=== PATIENT | female | born 1950 | race Asian ===

== ENCOUNTER → 2016-05-23 | Outpatient (CLI) | payer OTHER ==
[2016-05-23 10:29] LABS: MEAN CORPUSCULAR HGB CONC 33.2 g/dl (32.0-36.5); MEAN CORPUSCULAR VOLUME 96.4 fl (80.0-96.0); RED CELL DISTRIBUTION WIDTH 13.5 % (11.5-14.5); WHITE BLOOD COUNT 4.7 K/mm3 (4.0-10.0)
[2016-05-23 10:59] LABS: ALBUMIN 3.9 GM/DL (3.2-5.2); ALBUMIN/GLOBULIN RATIO 1.05 (1.00-1.93); ALKALINE PHOSPHATASE 57 U/L (45-117); ALT/SGPT 19 U/L (12-78); ANION GAP 9 MEQ/L (8-16); AST/SGOT 11 U/L (15-37); BILIRUBIN,TOTAL 0.3 MG/DL (0.2-1.0); BLOOD UREA NITROGEN 28 MG/DL (7-18); CARBON DIOXIDE LEVEL 24 MEQ/L (21-32); CHLORIDE LEVEL 108 MEQ/L (98-107); CREATININE FOR GFR 0.69 MG/DL (0.55-1.02); GLOMERULAR FILTRATION RATE > 60.0 (>45); GLUCOSE, FASTING 103 MG/DL (80-110); POTASSIUM SERUM 4.4 MEQ/L (3.5-5.1); SODIUM LEVEL 141 MEQ/L (136-145); TOTAL PROTEIN 7.6 GM/DL (6.4-8.2)
== END ==
LOC: M LAB 09:58
PROVIDERS: ATTEND Nurse Practitioner Family
DX: Z13.228 Encounter for screening for other metabolic disorders (principal); Z13.0 Encounter for screening for diseases of the blood and blood-forming organs and certain disorders involving the immune mechanism; R68.89 Other general symptoms and signs

== ENCOUNTER → 2016-08-15 | Outpatient (CLI) | payer OTHER ==
--- NOTE | 2016-08-15 12:32 | REPMRS ---
Patient History The patient states she has not had a clinical breast exam in over a year. Patient is postmenopausal and is nulliparous. No known family history of cancer. Digital Mammo Screening Bilat: August 15, 2016 - Exam #: [id number] Bilateral CC and MLO view(s) were taken. Technologist: Cheryl Paul, Technologist FINDINGS: There are scattered fibroglandular densities. There has been no change in the appearance of the mammogram from the prior studies. There is a mild amount of residual fibroglandular tissue which is fairly symmetric. There is no interval development of dominant mass, architectural distortion, or clustered microcalcification suggestive of malignancy. ASSESSMENT: BI-RADS/ACR category 1 mammogram. Negative. Recommendation Routine screening mammogram in 1 year (for women over age 40). This mammogram was interpreted with the aid of an FDA-approved computer-aided dectection system. Electronically Signed By: Jonas Jenkins MD 08/15/16 [id number]
== END ==
LOC: M RAD 11:37
PROVIDERS: ATTEND Nurse Practitioner Family
DX: Z12.31 Encounter for screening mammogram for malignant neoplasm of breast (principal)

== ENCOUNTER → 2016-08-29 | Outpatient (CLI) | payer OTHER ==
--- NOTE | 2016-08-30 08:50 | DEXA ---
AP SPINE L1 - L4 0.983 -1.7 -0.2 LT FEMUR TOTAL 0.970 -0.3 0.8 RT FEMUR TOTAL 0.989 -0.2 1.0 TOTAL BODY TOTAL OTHER DUAL FEMUR FRAX* ASSESSMENT Risk factors: History of fracture (adult). 10 year probability of fracture Major osteoporotic fracture 13.9 % Hip fracture 1.2 % COMMENTS: There is low bone density of the spine and hips. FOLLOW-UP: Recommendation for the next bone density exam: 2 years. YESSY
== END ==
LOC: M WHC 08:43
PROVIDERS: ATTEND Nurse Practitioner Family
DX: Z78.0 Asymptomatic menopausal state (principal); M84.80 Other disorders of continuity of bone, unspecified site

== ENCOUNTER → 2016-12-18 | Outpatient (REF) | payer OTHER ==
[2016-12-18 20:04] LABS: ANION GAP 10 MEQ/L (8-16); BLOOD UREA NITROGEN 14 MG/DL (7-18); CALCIUM LEVEL 8.6 MG/DL (8.8-10.2); CARBON DIOXIDE LEVEL 26 MEQ/L (21-32); CHLORIDE LEVEL 105 MEQ/L (98-107); CREATININE FOR GFR 0.66 MG/DL (0.55-1.02); GLOMERULAR FILTRATION RATE > 60.0 (>45); GLUCOSE, FASTING 92 MG/DL (80-110); POTASSIUM SERUM 3.8 MEQ/L (3.5-5.1); SODIUM LEVEL 141 MEQ/L (136-145)
== END ==
LOC: M LAB REF 18:03
PROVIDERS: ATTEND Nurse Practitioner Family
DX: M85.819 Other specified disorders of bone density and structure, unspecified shoulder (principal)

== ENCOUNTER → 2017-10-15 | Outpatient (REF) | payer MEDICARE ==
[2017-10-15 13:41] LABS: ALBUMIN 3.8 GM/DL (3.2-5.2); ALBUMIN/GLOBULIN RATIO 0.93 (1.00-1.93); ALKALINE PHOSPHATASE 65 U/L (45-117); ALT/SGPT 22 U/L (12-78); ANION GAP 6 MEQ/L (8-16); AST/SGOT 14 U/L (7-37); BILIRUBIN,TOTAL 0.4 MG/DL (0.2-1.0); BLOOD UREA NITROGEN 13 MG/DL (7-18); CALCIUM LEVEL 8.9 MG/DL (8.8-10.2); CARBON DIOXIDE LEVEL 30 MEQ/L (21-32); CHLORIDE LEVEL 104 MEQ/L (98-107); CHOLESTEROL LEVEL 276 MG/DL (<200); CHOLESTEROL RISK RATIO 4.758 (<5); CREATININE FOR GFR 0.63 MG/DL (0.55-1.30); GLOMERULAR FILTRATION RATE > 60.0 (>45); GLUCOSE, FASTING 82 MG/DL (70-100); HDL CHOLESTEROL 58 MG/DL (>40); LDL CHOLESTEROL 198.4 MG/DL (<100); NON-HDL-C 218 MG/DL; POTASSIUM SERUM 4.3 MEQ/L (3.5-5.1); SODIUM LEVEL 140 MEQ/L (136-145); TOTAL PROTEIN 7.9 GM/DL (6.4-8.2); TRIGLYCERIDES LEVEL 98 MG/DL (<150)
[2017-10-15 14:32] LABS: ESTIMATED AVERAGE GLUCOSE 126 MG/DL (60-110)
== END ==
LOC: M SFHCPLAZ 09:21
DX: Z13.1 Encounter for screening for diabetes mellitus (principal); Z13.220 Encounter for screening for lipoid disorders
CPT/HCPCS: 80053

== ENCOUNTER → 2018-10-07 | Outpatient (REF) | payer MEDICARE ==
[2018-10-07 11:27] LABS: HEMOGLOBIN A1c 6.1 %
[2018-10-07 11:32] LABS: CHOLESTEROL RISK RATIO 4.693 (<5)
== END ==
LOC: M SFHCPLAZ 08:52
PROVIDERS: ATTEND Family Medicine
DX: R73.03 Prediabetes (principal); E78.00 Pure hypercholesterolemia, unspecified

== ENCOUNTER → 2018-12-24 | Outpatient (REF) | payer MEDICARE | LOC: M LAB REF 12:38 | PROVIDERS: ATTEND Nurse Practitioner Family | DX: R19.7 Diarrhea, unspecified (principal) ==

== ENCOUNTER → 2018-12-25 | Outpatient (CLI) | payer MEDICARE ==
[2018-12-25 13:30] LABS: BASO % 0.6 % (0.0-1.0); EOS # 0.1 10^3/uL (0.0-0.50); EOS % 1.4 % (0.0-3.0); HEMATOCRIT 39.9 % (36.0-47.0); HEMOGLOBIN 13.3 g/dl (12.0-15.5); LYMPH # 2.2 10^3/uL (1.5-4.5); LYMPH % 33.7 % (24.0-44.0); MEAN CORPUSCULAR HEMOGLOBIN 32.5 pg (27.0-33.0); MEAN CORPUSCULAR HGB CONC 33.3 g/dl (32.0-36.5); MEAN CORPUSCULAR VOLUME 97.6 fl (80.0-96.0); MONO # 0.3 10^3/uL (0.0-0.8); MONO % 4.8 % (0.0-5.0); NEUTROPHILS # 3.9 10^3/uL (1.8-7.7); NEUTROPHILS % 59.2 % (36.0-66.0); PLATELET COUNT, AUTOMATED 358 10^3/uL (150-450); RED BLOOD COUNT 4.09 10^6/uL (4.00-5.40); WHITE BLOOD COUNT 6.6 10^3/uL (4.0-10.0)
[2018-12-25 13:32] LABS: ALBUMIN 4.1 GM/DL (3.2-5.2); ALT/SGPT 22 U/L (12-78); BILIRUBIN,TOTAL 0.3 MG/DL (0.2-1.0); BLOOD UREA NITROGEN 12 MG/DL (7-18); CALCIUM LEVEL 9.6 MG/DL (8.8-10.2); CARBON DIOXIDE LEVEL 27 MEQ/L (21-32); CHLORIDE LEVEL 106 MEQ/L (98-107); CREATININE FOR GFR 0.72 MG/DL (0.55-1.30); GLOMERULAR FILTRATION RATE > 60.0 (>45); GLUCOSE, FASTING 102 MG/DL (70-100); LIPASE 99 U/L (73-393); POTASSIUM SERUM 4.7 MEQ/L (3.5-5.1); SODIUM LEVEL 138 MEQ/L (136-145); TOTAL PROTEIN 8.4 GM/DL (6.4-8.2)
== END ==
LOC: M WUC 08:27
PROVIDERS: ATTEND Physician Assistant
DX: R19.7 Diarrhea, unspecified (principal)

== ENCOUNTER → 2019-01-27 | Outpatient (REF) | payer MEDICARE, OTHER | LOC: M SFHCPLAZ 12:37 | PROVIDERS: ATTEND Obstetrics & Gynecology | DX: Z01.419 Encounter for gynecological examination (general) (routine) without abnormal findings (principal); N95.8 Other specified menopausal and perimenopausal disorders ==

== ENCOUNTER → 2019-02-10 | Outpatient (CLI) | payer MEDICARE, OTHER ==
--- NOTE | 2019-02-10 15:07 | REPMRS ---
Patient History The patient states she has not had a clinical breast exam in over a year. Patient is postmenopausal and is nulliparous. Family history of colorectal cancer at age 69 in mother. No Hormone Replacement Therapy 3D TOMOSYNTHESIS WAS PERFORMED. [facility] lifetime risk for breast cancer is 6.9%. Digital Woman Screen Mammo: February 10, 2019 - Exam #: [id number] Bilateral CC and MLO view(s) were taken. Technologist: Rachelle Drummond, Technologist Prior study comparison: August 15, 2016, bilateral digital mammo screening bilat, performed at [facility]. FINDINGS: The breast tissue is heterogeneously dense. This may lower the sensitivity of mammography. There has been no change in the appearance of the mammogram from the prior studies. There is a moderate amount of residual fibroglandular tissue which is fairly symmetric. There is no interval development of dominant mass, areas of architectural distortion, or clustered microcalcification typical of malignancy. Assessment: BI-RADS/ACR category 1 mammogram. Negative Mammogram. Recommendation Routine screening mammogram in 1 year (for women over age 40). This mammogram was interpreted with the aid of an FDA-approved computer-aided dectection system. Electronically Signed By: Jonas Jenkins MD 02/10/19 0657
--- NOTE | 2019-02-13 09:34 | DEXA ---
AP SPINE L1 - L4 1.034 -1.3 0.3 LT FEMUR TOTAL 0.973 -0.3 1.0 LT NECK 0.874 -1.2 0.4 RT FEMUR TOTAL 0.980 -0.2 1.1 RT NECK 0.864 -1.3 0.3 TOTAL BODY TOTAL OTHER COMMENTS: There is low bone density of the spine and hips. The density of the spine has increased 5.2% since 08/29/2016. The density of the left hip has increased 0.3% since 08/29/2016. The density of the right hip has decreased 0.9% since 08/29/2016. The increased density of the spine does represent a significant change. The increased density of the left hip does not represent a significant change. The decreased density of the right hip does not represent a significant change. FOLLOW-UP: Recommendation for the next bone density exam: 2 years. YESSY
== END ==
LOC: M WHC 13:17
PROVIDERS: ATTEND Student in an Organized Health Care Education/Training Program
DX: Z12.31 Encounter for screening mammogram for malignant neoplasm of breast (principal); Z12.39 Encounter for other screening for malignant neoplasm of breast; Z13.820 Encounter for screening for osteoporosis; M81.0 Age-related osteoporosis without current pathological fracture

== ENCOUNTER 2019-03-17 08:57 | Day surgery (SDC) | payer MEDICARE, OTHER ==
[~2019-03-17] VITALS: Ht 154.9 cm; Wt 65.8 kg
[2019-03-17] MEDS ORDERED: NS 1,000 ML IV ONE (10:00)
[2019-03-17] MEDS ORDERED: PROPOFOL 200 MG/20 ML VIAL As Ordered ONE (10:02)
[2019-03-17] MEDS ORDERED: LIDOCAINE 2% INJ 100 MG/5 ML SDV (FOR ANES.) As Ordered ONE (10:02)
--- NOTE | 2019-03-17 10:34 | ROOR ---
Patient Name: Mikel Monson Procedure Date: 03/17/2019 9:38 AM Date of : 1950 Age: 68 Room: [facility] Gender: Female Note Status: Finalized Procedure: Upper GI endoscopy Indications: Heartburn, Suspected gastro-esophageal reflux disease Providers: Shane Angeles MD Referring MD: Fahad Gordon Do Requesting Provider: Medicines: Monitored Anesthesia Care Complications: No immediate complications. Procedure: Pre-Anesthesia Assessment: - Prior to the procedure, a History and Physical was performed, and patient medications and allergies were reviewed. The patient is competent. The risks and benefits of the procedure and the sedation options and risks were discussed with the patient. All questions were answered and informed consent was obtained. Patient identification and proposed procedure were verified by the physician, the nurse and the anesthesiologist in the procedure room. Mental Status Examination: alert and oriented. Airway Examination: normal oropharyngeal airway and neck mobility. Respiratory Examination: clear to auscultation. CV Examination: normal. Prophylactic Antibiotics: The patient does not require prophylactic antibiotics. Prior Anticoagulants: The patient has taken no previous anticoagulant or antiplatelet agents. ASA Grade Assessment: II - A patient with mild systemic disease. After reviewing the risks and benefits, the patient was deemed in satisfactory condition to undergo the procedure. The anesthesia plan was to use monitored anesthesia care (MAC). Immediately prior to administration of medications, the patient was re-assessed for adequacy to receive sedatives. The heart rate, respiratory rate, oxygen saturations, blood pressure, adequacy of pulmonary ventilation, and response to care were monitored throughout the procedure. The physical status of the patient was re-assessed after the procedure. The Endoscope was introduced through the mouth, and advanced to the second part of duodenum. The upper GI endoscopy was accomplished without difficulty. The patient tolerated the procedure well. Findings: The Z-line was irregular and was found 35 cm from the incisors. The examined esophagus was normal. Scattered mild inflammation characterized by erythema and granularity was found in the gastric antrum. Biopsies were taken with a cold forceps for Helicobacter pylori testing. Verification of patient identification for the specimen was done by the physician and nurse using the patient's name, date and medical record number. Estimated blood loss was minimal. The duodenal bulb and second portion of the duodenum were normal. Impression: - Z-line irregular, 35 cm from the incisors. - Normal esophagus. - Gastritis. Biopsied. - Normal duodenal bulb and second portion of the duodenum. Recommendation: - Patient has a contact number available for emergencies. The signs and symptoms of potential delayed complications were discussed with the patient. Return to normal activities tomorrow. Written discharge instructions were provided to the patient. - High fiber diet. - Follow an antireflux regimen. - Await pathology results. - Telephone GI clinic for pathology results in 2 weeks. - Return to primary care physician. Shane Angeles MD Shane Angeles MD 03/17/2019 10:34:02 AM Electronically signed by Shane Angeles MD Number of Addenda: 0 Note Initiated On: 03/17/2019 9:38 AM Estimated Blood Loss: Estimated blood loss was minimal.
--- NOTE | 2019-03-17 10:39 | ROOR ---
Patient Name: Mikel Monson Procedure Date: 03/17/2019 9:39 AM Date of : 1950 Age: 68 Room: [facility] Gender: Female Note Status: Finalized Procedure: Colonoscopy Indications: Screening for colorectal malignant neoplasm Providers: Shane Angeles MD Referring MD: Fahad Gordon Do Requesting Provider: Medicines: Monitored Anesthesia Care Complications: No immediate complications. Procedure: Pre-Anesthesia Assessment: - Prior to the procedure, a History and Physical was performed, and patient medications and allergies were reviewed. The patient is competent. The risks and benefits of the procedure and the sedation options and risks were discussed with the patient. All questions were answered and informed consent was obtained. Patient identification and proposed procedure were verified by the physician, the nurse and the anesthesiologist in the procedure room. Mental Status Examination: alert and oriented. Airway Examination: normal oropharyngeal airway and neck mobility. Respiratory Examination: clear to auscultation. CV Examination: normal. Prophylactic Antibiotics: The patient does not require prophylactic antibiotics. Prior Anticoagulants: The patient has taken no previous anticoagulant or antiplatelet agents. ASA Grade Assessment: II - A patient with mild systemic disease. After reviewing the risks and benefits, the patient was deemed in satisfactory condition to undergo the procedure. The anesthesia plan was to use monitored anesthesia care (MAC). Immediately prior to administration of medications, the patient was re-assessed for adequacy to receive sedatives. The heart rate, respiratory rate, oxygen saturations, blood pressure, adequacy of pulmonary ventilation, and response to care were monitored throughout the procedure. The physical status of the patient was re-assessed after the procedure. The Colonoscope was introduced through the anus and advanced to the terminal ileum, with identification of the appendiceal orifice and IC valve. The colonoscopy was performed without difficulty. The patient tolerated the procedure well. The quality of the bowel preparation was good. The terminal ileum, ileocecal valve, appendiceal orifice, and rectum were photographed. Scope insertion time was 3 minutes. Scope withdrawal time was 8 minutes. The total duration of the procedure was 11 minutes. Findings: The perianal and digital rectal examinations were normal. The terminal ileum appeared normal. Two sessile polyps were found in the transverse colon and ascending colon. The polyps were 6 to 8 mm in size. These polyps were removed with a cold snare. Resection and retrieval were complete. Verification of patient identification for the specimen was done by the physician and nurse using the patient's name, date and medical record number. Estimated blood loss was minimal. Multiple small and large-mouthed diverticula were found in the right colon. There was no evidence of diverticular bleeding. External and internal hemorrhoids were found during retroflexion. The hemorrhoids were medium-sized. Impression: - The examined portion of the ileum was normal. - Two 6 to 8 mm polyps in the transverse colon and in the ascending colon, removed with a cold snare. Resected and retrieved. - Moderate diverticulosis in the right colon. There was no evidence of diverticular bleeding. - External and internal hemorrhoids. Recommendation: - Patient has a contact number available for emergencies. The signs and symptoms of potential delayed complications were discussed with the patient. Return to normal activities tomorrow. Written discharge instructions were provided to the patient. - High fiber diet. - Continue present medications. - Await pathology results. - Repeat colonoscopy in 5-10 years for surveillance based on pathology results. - Telephone GI clinic for pathology results in 2 weeks. - Return to primary care physician. Shane Angeles MD Shane Angeles MD 03/17/2019 10:39:35 AM Electronically signed by Shane Angeles MD Number of Addenda: 0 Note Initiated On: 03/17/2019 9:39 AM Estimated Blood Loss: Estimated blood loss was minimal.
[2019-03-17 10:40] VITALS: BP 142/96
== END 2019-03-17 10:55 | disposition home or self-care (01) ==
LOC: M OPP 08:57
PROVIDERS: ATTEND Internal Medicine Gastroenterology
DX: Z12.11 Encounter for screening for malignant neoplasm of colon (principal); K63.5 Polyp of colon; K64.8 Other hemorrhoids; K57.30 Diverticulosis of large intestine without perforation or abscess without bleeding; K22.8 Other specified diseases of esophagus; K29.70 Gastritis, unspecified, without bleeding; R12 Heartburn; Z91.018 Allergy to other foods

== ENCOUNTER → 2019-05-13 | Outpatient (CLI) | payer MEDICARE, OTHER ==
--- NOTE | 2019-05-13 15:10 | REPPI ---
Left knee series: Five views. History: Pain in the left knee. Findings: Five views of the left knee demonstrate mild to moderate medial compartment osteoarthritic spurring and sclerosis. There is a tiny ossicle adjacent to the tibial spines, 3 mm in diameter. This could be a joint mouse. There is no evidence of joint effusion. No fracture is seen. Impression: Medial compartment osteoarthritic spurring. Question loose body. Electronically Signed by Serg Eli MD 05/13/2019 06:20 P
== END ==
LOC: M PLAIMG 14:19
PROVIDERS: ATTEND Student in an Organized Health Care Education/Training Program
DX: M17.12 Unilateral primary osteoarthritis, left knee (principal); M25.562 Pain in left knee
CPT/HCPCS: 73564; G0463

== ENCOUNTER → 2019-05-26 | Outpatient (REF) | payer MEDICARE, OTHER | LOC: M LAB REF 09:36 | PROVIDERS: ATTEND Physician Assistant Medical | DX: B96.81 Helicobacter pylori [H. pylori] as the cause of diseases classified elsewhere (principal) ==

== ENCOUNTER → 2019-06-09 | Outpatient (REF) | payer MEDICARE, OTHER | LOC: M SFHCPLAZ 13:35 | PROVIDERS: ATTEND Family Medicine | DX: R73.03 Prediabetes (principal) ==

== ENCOUNTER → 2019-09-22 | Outpatient (REF) | payer MEDICARE, OTHER ==
[2019-09-22 15:29] LABS: HEMOGLOBIN A1c 5.6 %
== END ==
LOC: M SFHCPLAZ 10:11
PROVIDERS: ATTEND Internal Medicine
DX: R73.03 Prediabetes (principal)
CPT/HCPCS: 83036; G0463

== ENCOUNTER → 2020-11-04 | Outpatient (CLI) | payer MEDICARE, OTHER ==
[2020-11-04 15:54] LABS: CHOLESTEROL RISK RATIO 5.35 (<5)
[2020-11-04 16:22] LABS: HEMOGLOBIN A1c 5.6 %
== END ==
LOC: M PLALAB 11:49
PROVIDERS: ATTEND Student in an Organized Health Care Education/Training Program
DX: R73.03 Prediabetes (principal); E78.00 Pure hypercholesterolemia, unspecified
CPT/HCPCS: 36415; 80061; 83036; G0463

== ENCOUNTER → 2021-01-26 | Outpatient (CLI) | payer MEDICARE, OTHER ==
[2021-01-26 14:48] LABS: ALBUMIN 3.6 GM/DL (3.2-5.2); ALT/SGPT 32 U/L (12-78); BILIRUBIN,TOTAL 0.3 MG/DL (0.2-1.0); BLOOD UREA NITROGEN 12 MG/DL (7-18); CALCIUM LEVEL 9.2 MG/DL (8.8-10.2); CARBON DIOXIDE LEVEL 30 MEQ/L (21-32); CHLORIDE LEVEL 106 MEQ/L (98-107); CREATININE FOR GFR 0.62 MG/DL (0.55-1.30); GLOMERULAR FILTRATION RATE > 60.0 (>45); GLUCOSE, FASTING 93 MG/DL (70-100); POTASSIUM SERUM 4.1 MEQ/L (3.5-5.1); SODIUM LEVEL 140 MEQ/L (136-145); TOTAL PROTEIN 7.4 GM/DL (6.4-8.2)
== END ==
LOC: M PLALAB 10:07
PROVIDERS: ATTEND Student in an Organized Health Care Education/Training Program
DX: E78.00 Pure hypercholesterolemia, unspecified (principal)
CPT/HCPCS: 36415; 80053; G0463

== ENCOUNTER → 2021-02-09 | Outpatient (CLI) | payer MEDICARE, OTHER | LOC: M PLALAB 09:30 | PROVIDERS: ATTEND Student in an Organized Health Care Education/Training Program | DX: L85.3 Xerosis cutis (principal); Z79.899 Other long term (current) drug therapy; Z23 Encounter for immunization | CPT/HCPCS: 36415; 84443; 90472; 90682; 90715; G0008; G0463 ==

== ENCOUNTER → 2021-03-07 | Outpatient (CLI) | payer MEDICARE, OTHER ==
--- NOTE | 2021-03-07 14:38 | REPMRS ---
Patient History The patient states she has not had a clinical breast exam in over a year. Family history of colorectal cancer at age 69 in mother. No Hormone Replacement Therapy Patient states no breast complaints today. Patient has signed MRS History Sheet. Digital Woman Screen Mammo: March 07, 2021 - Exam #: [id number] Bilateral CC and MLO view(s) were taken. Technologist: Dedra Hughes, Technologist Prior study comparison: February 10, 2019, bilateral digital woman screen mammo performed at [facility]. August 15, 2016, bilateral digital mammo screening bilat, performed at [facility]. FINDINGS: There are scattered fibroglandular densities. Screening. Digital screening (2D) mammography was performed bilaterally in the CC and MLO projections. Additionally, breast tomosynthesis (3D mammography) was performed bilaterally in the CC and MLO projections. Todays exam was compared to the prior exam/exams. By history, the patient has no complaints of a palpable breast abnormality or other significant breast complaints. The breasts are unchanged in size and shape. There are no jennifer-soft tissue densities or spiculated masses. There is no internal architectural distortion.Once again, stable benign appearing calcifications are seen. There are no suspicious jennifer-calcific clusters. Skin thickening or nipple retraction is not present. IMPRESSION: BI-RADS Category 2- Benign Findings. There is no evidence of malignant alteration of the breasts. Followup examination recommended in one year. The Volpara volumetric breast density category is B, there are scattered areas of fibroglandular densities. This mammogram was read with the assistance of [facility].,an FDA approved computer aided detection system for mammography. The lifetime Tyrer-Cuzick score is 6.2 % Negative x-ray reports should not delay surgical consultation if a dominant or clinically suspicious mass is present. Not all breast cancers can be identified by mammography. Therefore, we recommend that you continue to perform regular breast self-examination and physical examination and then promptly contact your physician of any concerns or changes. Adenosis and dense breasts may obscure an underlying neoplasm. Assessment: BI-RADS/ACR category 2 mammogram. Benign Findings. Recommendation Routine screening mammogram of both breasts in 1 year. Electronically Signed By: Bharath Dominguez DO 03/07/21 [id number]
--- NOTE | 2021-03-07 15:12 | DEXAMM ---
INDICATION: OSTEOPOROSIS SCREENING. COMPARISON: 02/10/2019, 08/29/2016. TECHNIQUE: Bone density was measured using dual-energy x-ray absorptiometry (DEXA). FINDINGS: AP SPINE L1-L4 BMD 1.018 g/cm2 Young Adult T-Score -1.4 Age Matched Z-Score 0.2. LT FEMUR, TOTAL BMD 0.927 g/cm2 Young Adult T-Score -0.6 Age Matched Z-Score 0.8. LT NECK BMD 0.799 g/cm2 Young Adult T-Score -1.7 Age Matched Z-Score -0.1. RT FEMUR, TOTAL BMD 0.977 g/cm2 Young Adult T-Score -0.2 Age Matched Z-Score 1.1. RT NECK BMD 0.863 g/cm2 Young Adult T-Score -1.3 Age Matched Z-Score 0.4. IMPRESSION: There is low bone density of the spine. There is low bone density of the left hip. There is low bone density of the right hip. The density of the spine has increased 3.6% since the initial exam on 08/29/2016. The density of the spine decreased 1.5% since most recent exam on 02/10/2019. The density of the left hip has decreased 4.4% since initial exam on 08/29/2016. The density of the left hip has decreased 4.7% since most recent exam on 02/10/2019. The density of the right hip has decreased 1.2% since the initial exam on 08/29/2016. The density of the right hip has decreased 0.3% since the most recent exam on 02/10/2019. FOLLOW-UP: Recommendation for the next bone density exam: 2 years. <Electronically signed by Jonas Jenkins > 03/07/21 [id number]
== END ==
LOC: M WHC 13:45
PROVIDERS: ATTEND Student in an Organized Health Care Education/Training Program
DX: Z12.31 Encounter for screening mammogram for malignant neoplasm of breast (principal); Z13.820 Encounter for screening for osteoporosis; Z80.0 Family history of malignant neoplasm of digestive organs; R92.1 Mammographic calcification found on diagnostic imaging of breast; M85.88 Other specified disorders of bone density and structure, other site; M85.851 Other specified disorders of bone density and structure, right thigh; M85.852 Other specified disorders of bone density and structure, left thigh

== ENCOUNTER → 2021-08-25 | Outpatient (REF) | payer MEDICARE, OTHER | LOC: M SFHCPLAZ 13:46 | PROVIDERS: ATTEND Family Medicine | DX: Z53.9 Procedure and treatment not carried out, unspecified reason (principal); E78.2 Mixed hyperlipidemia; R73.03 Prediabetes; Z13.21 Encounter for screening for nutritional disorder ==

== ENCOUNTER → 2021-08-31 | Outpatient (CLI) | payer MEDICARE, OTHER ==
[2021-08-31 11:09] LABS: HEMOGLOBIN A1c 5.8 %
[2021-08-31 11:12] LABS: ALBUMIN 3.9 GM/DL (3.2-5.2); ALT/SGPT 30 U/L (12-78); BILIRUBIN,TOTAL 0.5 MG/DL (0.2-1.0); BLOOD UREA NITROGEN 14 MG/DL (7-18); CALCIUM LEVEL 8.9 MG/DL (8.8-10.2); CARBON DIOXIDE LEVEL 31 MEQ/L (21-32); CHLORIDE LEVEL 107 MEQ/L (98-107); CHOLESTEROL LEVEL 143 MG/DL (<200); CHOLESTEROL RISK RATIO 2.648 (<5); CREATININE FOR GFR 0.65 MG/DL (0.55-1.30); GLOMERULAR FILTRATION RATE > 60.0 (>45); GLUCOSE, FASTING 94 MG/DL (70-100); HDL CHOLESTEROL 54 MG/DL (>40); LDL CHOLESTEROL 35 MG/DL (<100); NON-HDL-C 89 MG/DL; POTASSIUM SERUM 4.1 MEQ/L (3.5-5.1); SODIUM LEVEL 140 MEQ/L (136-145); TOTAL PROTEIN 7.2 GM/DL (6.4-8.2); TRIGLYCERIDES LEVEL 269 MG/DL (<150)
[2021-08-31 11:46] LABS: TOTAL 25(OH) VITAMIN D 9.8 NG/ML (30.0-100.0)
== END ==
LOC: M PLALAB 08:05
PROVIDERS: ATTEND Student in an Organized Health Care Education/Training Program
DX: E78.2 Mixed hyperlipidemia (principal); R73.03 Prediabetes; Z13.21 Encounter for screening for nutritional disorder; Z79.899 Other long term (current) drug therapy

== ENCOUNTER → 2021-09-22 | Outpatient (CLI) | payer MEDICARE, OTHER | LOC: M PLALAB 15:37 | PROVIDERS: ATTEND Student in an Organized Health Care Education/Training Program | DX: Z20.1 Contact with and (suspected) exposure to tuberculosis (principal) ==

== ENCOUNTER → 2021-12-19 | Outpatient (REF) | payer MEDICARE, OTHER | LOC: M SFHCPLAZ 09:09 | PROVIDERS: ATTEND Family Medicine | DX: E55.9 Vitamin D deficiency, unspecified (principal); E78.00 Pure hypercholesterolemia, unspecified; Z12.31 Encounter for screening mammogram for malignant neoplasm of breast; Z11.4 Encounter for screening for human immunodeficiency virus [HIV]; Z11.59 Encounter for screening for other viral diseases; Z20.1 Contact with and (suspected) exposure to tuberculosis ==

== ENCOUNTER → 2021-12-21 | Outpatient (CLI) | payer MEDICARE, OTHER ==
[2021-12-21 17:13] LABS: BLOOD UREA NITROGEN 15 MG/DL (7-18); CREATININE FOR GFR 0.69 MG/DL (0.55-1.30); GLUCOSE, FASTING 96 MG/DL (70-100)
[2021-12-21 17:14] LABS: ALBUMIN 3.8 GM/DL (3.2-5.2); ALT/SGPT 24 U/L (12-78); BILIRUBIN,TOTAL 0.4 MG/DL (0.2-1.0); CALCIUM LEVEL 9.4 MG/DL (8.8-10.2); CARBON DIOXIDE LEVEL 32 MEQ/L (21-32); CHLORIDE LEVEL 106 MEQ/L (98-107); CHOLESTEROL LEVEL 138 MG/DL (<200); GLOMERULAR FILTRATION RATE > 60.0 (>45); HDL CHOLESTEROL 69 MG/DL (>40); LDL CHOLESTEROL 36 MG/DL (<100); NON-HDL-C 69 MG/DL; SODIUM LEVEL 138 MEQ/L (136-145); TOTAL PROTEIN 7.8 GM/DL (6.4-8.2); TRIGLYCERIDES LEVEL 167 MG/DL (<150)
[2021-12-21 17:28] LABS: HEMOGLOBIN A1c 5.9 %
[2021-12-21 18:23] LABS: HIV 1&2 SCREEN CENTAUR NEGATIVE (NEGATIVE)
== END ==
LOC: M PLALAB 08:29
PROVIDERS: ATTEND Student in an Organized Health Care Education/Training Program
DX: E78.00 Pure hypercholesterolemia, unspecified (principal); E55.9 Vitamin D deficiency, unspecified; Z11.4 Encounter for screening for human immunodeficiency virus [HIV]; Z20.1 Contact with and (suspected) exposure to tuberculosis; R73.03 Prediabetes

== ENCOUNTER → 2022-04-13 | Outpatient (CLI) | payer MEDICARE, OTHER | LOC: M WHC 12:55 | PROVIDERS: ATTEND Student in an Organized Health Care Education/Training Program | DX: Z12.31 Encounter for screening mammogram for malignant neoplasm of breast (principal) ==

== ENCOUNTER → 2022-07-19 | Outpatient (CLI) | payer MEDICARE, OTHER ==
[2022-07-19 14:25] LABS: HEMATOCRIT 40.3 % (36.0-47.0); HEMOGLOBIN 12.9 g/dl (12.0-15.5); MEAN CORPUSCULAR HEMOGLOBIN 31.9 pg (27.0-33.0); MEAN CORPUSCULAR VOLUME 99.5 fl (80.0-96.0); PLATELET COUNT, AUTOMATED 230 10^3/uL (150-450); RED BLOOD COUNT 4.05 10^6/uL (4.00-5.40); WHITE BLOOD COUNT 4.4 10^3/uL (4.0-10.0)
[2022-07-19 14:33] LABS: ALBUMIN 3.8 G/DL (3.2-5.2); ALKALINE PHOSPHATASE 56 U/L (46-116); ALT/SGPT 19 U/L (7.0-40); AST/SGOT 14 U/L (<34); BILIRUBIN,TOTAL 0.6 MG/DL (0.3-1.2); BLOOD UREA NITROGEN 14 MG/DL (9-23); CALCIUM LEVEL 9.1 MG/DL (8.3-10.6); CARBON DIOXIDE LEVEL 27 MMOL/L (20-31); CHLORIDE LEVEL 108 MMOL/L (98-107); CHOLESTEROL LEVEL 144 MG/DL (<200); CHOLESTEROL RISK RATIO 1.89 (<5); CREATININE FOR GFR 0.74 MG/DL (0.55-1.30); GLOMERULAR FILTRATION RATE > 60.0 (>39); GLUCOSE, FASTING 103 MG/DL (74-106); LDL CHOLESTEROL 44.2 MG/DL (<100); POTASSIUM SERUM 4.3 MMOL/L (3.5-5.1); SODIUM LEVEL 140 MMOL/L (136-145); TOTAL PROTEIN 6.9 G/DL (5.7-8.2); TRIGLYCERIDES LEVEL 119 MG/DL (<150)
[2022-07-19 14:41] LABS: HEMOGLOBIN A1c 5.9 % (4.0-6.0)
== END ==
LOC: M PLALAB 09:29
PROVIDERS: ATTEND Student in an Organized Health Care Education/Training Program
DX: K21.9 Gastro-esophageal reflux disease without esophagitis (principal); Z13.1 Encounter for screening for diabetes mellitus; E55.9 Vitamin D deficiency, unspecified; E78.00 Pure hypercholesterolemia, unspecified